=== PATIENT | female | born 1955 | race Caucasian/White ===

== ENCOUNTER 2025-01-31 16:32 | Emergency (ER) | payer OTHER, SELFPAY ==
--- OUTSIDE RECORDS SUMMARY | 2020-12-27 05:01 | XMS_ITS | Continuity of Care Document ---
Author Organization [facility] Address [address] [address] [place] [address] Care Team Providers Care Infectious Disease Physician Name Role Phone [employer], [place] Unavailable Unav ailable Procedures Procedure Date Ugi Endo; W/bx 1/mx Ugi En Colore Advance Directives Directive Yes / No Effective Date File Name No Information Encounters Encounter Description Practice Location Reason(s) For Visit Diagnoses Date Provider Providers Copied on Encounter [facility], [address] [address], [place], [place], [id number], [place] [facility] No Information [facility]. [address] [address], [place], [place], [id number], . tel:[phone] Family History Family Member Type Diagnosis Age At Onset No Information Payers Payer name Insurance type Covered green party ID Authoriza tion(s) [employer] Gold Choice 16 [id number] Social History Type Description Quantity Date Captured Comments Sex Female Smoking Status No Information Chief Complaint And Reason For Visit No Information Reason For Referral Reason For Referral No Information History Of Present Illness Encounter Date Complaint History Of Prese nt Illness No Information Functional Status Date Functional Assessmen t No Information Instructions Date Instruction Additional Infor mation No Information Assessments Type Assessment Date No Information Patient Care Teams Name Effective Dates (start - stop) Status Members No Information
--- OUTSIDE RECORDS SUMMARY | 2025-01-06 09:00 | XMS_ITS | Continuity of Care Document ---
Author Organization [facility] Address [address] [address] [place] [address] Phone Care Team Providers Care Technology Education Instructor Name Role Phone Scott Brito DO Unavailable Unavailable Allergies, Adverse Reactions, Alerts Substance Reaction Status Criticality No Known Allergies Active No Inform ation WARNIN allergy(ies) could not be collected because the type is not supported. Please contact the source practice for further details. Medications Medication Instructions Dosage Effective Dates (start - stop) Status Comments sertraline 25 mg tablet take 1 tablet by oral route every day 25 MG - Active tramadol 50 mg tablet take 1 tablet by o ral route every 6 hours as needed 50 MG - Active Ambien 5 mg tablet take 1 tablet by ORA L route every day as needed at bedtime 5 MG - Active venlafaxine ER 150 mg tablet,extended release 24 hr take 1 tablet by oral route 2 times every day in the morning at the same time each day with food 150 MG - Active gabapentin 300 mg capsule take 1 Capsule by ORAL route 3 times every day 300 MG - Active Abilify 2 mg tablet take 1 tablet by ora l route every day 2 MG - Active Lipitor 40 mg tablet take 1 tablet by or al route every day 40 MG - Active Zanaflex 4 mg capsule take 1 capsule by oral route every 6 - 8 hours as needed not to exceed 3 doses in 24 hours 4 MG - Active omeprazole 40 mg capsule,delayed release take 1 by Oral route every day 1 - Active fluconazole 100 mg tablet take 2 tablets by oral route on day 1, then 1 tablet po every day - Active omeprazole 40 mg Cap, Delayed Release One tab po bid - Active Procedures Procedure Date Ugi Endo; W/bx 1/mx Level Iv-surg Path Gross/micro 25 cancelled appt cancelled appt Ugi Endo; W/insrt Guide Wire Ugi Endo; W/bx 1/mx Level Iv-surg Path Gross/micro 23 Ugi Endo; W/insrt Guide Wire Ugi Endo; W/bx 1/mx Colorectal Ca Scrn Not Hi Risk 21 Level Iv-surg Path Gross/micro 21 Ugi Endo; W/dilat Outlet-any M 17 cancelled appt Ugi Endo; W/dilat Outlet-any M 13 Ugi Endo; W/dilat Outlet-any M 12 Colonoscopy Flex; W/remov Les- 11 Ugi Endo; W/dilat Outlet-any M 11 Level Iv-surg Path Gross/micro 11 Ugi Endo; W/dilat Outlet-any M 11 Ugi Endo; W/dilat Outlet-any M 10 Ugi Endo; W/dilat Outlet-any M 10 Ugi Endo; W/dilat Outlet-any M 10 Ugi Endo; W/dilat Outlet-any M 10 Ugi Endo; W/balloon Dilat Esop 10 Ugi Endo; W/dilat Outlet-any M 10 Ugi Endo; W/dilat Outlet-any M 10 Ugi Endo; Dx W/wo Collec Specm 10 Advance Directives Directive Yes / No Effective Date File Name No Information Encounters Encounter Description Practice Location Reason(s) For Visit Diagnoses Date Provider Providers Copied on Encounter [facility], [address] [address], [place], [id number], [place] tel:[phone] [facility] Bariatric surgery statusDysphas iaNausea and vomiting, unspecified vomiting typeDisease of stomach and duodenum, unspecifiedNa usea with vomiting, unspecified 5 Alisha Vera. [address] [facility], [address], [id number], [place]. tel:[phone] Referring Provider: Referral Self, USE FOR SELF REFERRALS. [facility], [address] [address], [place], [id number], [place] tel:[phone] [facility] No Information 5 Lamont Tapia. [address], [id number], [place]. tel:[phone] Referring Provider: Jan Angeles MD, [address] [place], [address]. tel:[phone] [facility], [address] [address], [place], [id number], [place] tel:[phone] [facility] No Information 5 Sage Colon. [address] [facility], [address], [id number], [place]. tel:[phone] Referring Provider: Referral Self, USE FOR SELF REFERRALS. [facility], [address] [address], [place], [id number], [place] tel:[phone] [facility] History of Larry-en-Y gastric bypassBariatr ic surgery statusHistory of Larry-en-Y gastric bypassDysphas iaOther dysphagiaBari atric surgery status 3 Flor Gar. [address] [facility], [facility] [address], [place], [id number], [place]. tel:[phone] Love Rdz MD. tel:[phone] erring Provider: Jan Angeles MD, [address], [place], [address]. tel:[phone] [facility], [address] [address], [place], [place], [id number], [place] tel:[phone] [facility] No Information 3 Oscar Ruiz. [address] [facility], [address], [place], [address], [place]. tel:[phone] [facility], [address] [address], [place], [place], [id number], [place] tel:[phone] [facility] GI Symptoms or Concerns (chief complaint) Esophageal strictureDysp hagia, unspecified typeHistory of Larry-en-Y gastric bypassIron deficiency anemia, unspecified iron deficiency anemia typeDiverticu losis of colon without diverticuliti sGrade I hemorrhoidsLi mihai of colonColon cancer screeningMoni lial esophagitisEn counter for screening for malignant neoplasm of colonBariatri c surgery statusEsophag eal obstruction 1 No Information Love Rdz MD. tel:[phone] erring Provider: Jan Angeles MD, [address], [place], [address]. tel:[phone] [facility], [address] [address], [place], [address], [place] tel:[phone] [facility] No Information 1 Hira Bustos. [address] [facility], [address], [place], [place], [id number], [place]. tel:[phone] [facility], [address] [address], [place], [address], [place] tel:[phone] [facility] H/O bariatric surgeryGastro jejunal anastomotic strictureAdul t hypertrophic pyloric stenosisBaria tric surgery statusOth postprocedura l complications and disorders of dgstv sys Jun-1 7 Roldan Bill. [address] [facility], [address], [place], [place], [address], [place]. tel:[phone] Referring Provider: Referral Self, USE FOR SELF REFERRALS. [facility], [address] [address], [place], [id number], [place] tel:[phone] [facility] No Information 7 No Information Referring Provider: Referral Self, USE FOR SELF REFERRALS. [facility], [address] [address], [place], [id number], [place] tel:[phone] [facility] Nausea with vomiting, unspecified 7 No Information [facility], [address] [address], [place], [id number], [place] tel:[phone] [facility] Esoph Stricture/delma atzki RingEsop Ulcer W/o BleedPost-op Aftercare NecEsoph Stricture/delma atzki RingBariatric Surgery StatusGastric /antral Ulcer Unspec 3 No Information [facility], [address] [address], [place], [id number], [place] tel:[phone] [facility] No Information 3 No Information [facility], [address] [address], [place], [id number], [place] tel:[phone] [facility] Gastric Outlet Obstuc/pylori c StenoPost-op Aftercare NecGastric Outlet Obstuc/pylori c StenoBariatri c Surgery Status 2 No Information Referring Provider: Referral Self, USE FOR SELF REFERRALS. [facility], [address] [address], [place], [id number], [place] tel:[phone] [facility] Gastric Outlet Obstuc/pylori c StenoPost-op Aftercare NecPolyp-inte s/rect/stom-u nc BehColon Cancer ScreeningBeni gn Neoplasm ColonColon Cancer ScreeningBari atric Surgery StatusGastric Outlet Obstuc/pylori c StenoBenign Neoplasm Colon 1 No Information [facility], [address] [address], [place], [id number], [place] tel:[phone] [facility] Peptic Ulcer W/o Obstruction 1 No Information [facility], [address] [address], [place], [id number], [place] tel:[phone] [facility] Gastric Outlet Obstuc/pylori c StenoPost-op Aftercare NecPeptic Ulcer W/o ObstructionGa stric Outlet Obstuc/pylori c StenoBariatri c Surgery StatusPeptic Ulcer W/o Obstruction 1 No Information [facility], [address] [address], [place], [id number], [place] tel:[phone] [facility] Esoph Stricture/delma atzki RingGastric Outlet Obstuc/pylori c StenoPost-op Aftercare NecGastric Outlet Obstuc/pylori c StenoBariatri c Surgery Status 0 No Information [facility], [address] [address], [place], [id number], [place] tel:[phone] [facility] Gastric Outlet Obstuc/pylori c StenoPost-op Aftercare NecGastric Outlet Obstuc/pylori c StenoBariatri c Surgery Status 0 No Information [facility], [address] [address], [place], [id number], [place] tel:[phone] [facility] Post-op Aftercare NecGastric Outlet Obstuc/pylori c StenoGastric Outlet Obstuc/pylori c StenoBariatri c Surgery Status 0 No Information [facility], [address] [address], [place], [id number], [place] tel:[phone] [facility] Gastric Outlet Obstuc/pylori c StenoGastric/ antral Ulcer UnspecPost-op Aftercare NecGastric Outlet Obstuc/pylori c StenoBariatri c Surgery StatusGastric /antral Ulcer Unspec 0 No Information [facility], [address] [address], [place], [id number], [place] tel:[phone] [facility] Post-op Aftercare NecGastric Outlet Obstuc/pylori c StenoBariatri c Surgery Status 4-201 0 Shahbaz Ferrera. [address] [facility], [address], [place], [place], [address], [place]. [phone] [facility], [address] [address], [place], [id number], [place] tel:[phone] [facility] Post-op Aftercare NecGastric/an tral Ulcer UnspecGastric Outlet Obstuc/pylori c StenoGastric/ antral Ulcer UnspecBariatr ic Surgery StatusGastric Outlet Obstuc/pylori c Steno Jun- 7-201 0 No Information [facility], [address] [address], [place], [id number], [place] tel:[phone] [facility] Esop Ulcer W/o BleedGastric Outlet Obstuc/pylori c StenoPost-op Aftercare NecEsop Ulcer W/o BleedBariatri c Surgery StatusGastric Outlet Obstuc/pylori c Steno 5-201 0 No Information [facility], [address] [address], [place], [id number], [place] tel:[phone] [facility] Gastric Ulcer W/obstruc UnspecifiedBa riatric Surgery Status 0-201 0 No Information Family History Family Member Type Diagnosis Age At Onset Brother Problem (finding) Thyroid disorder Father Problem (finding) prostate cancer Father Problem (finding) Colon polyps Immunizations Vaccine Date Status Comments Pneumococcal conjugate vacci ne 20-valent (PCV20), polysaccharide ISE303 conjugate, adjuvant, preservative free administered Note: [facility] bi-direct ional interface ; Source: Other Registry tetanus toxoid, reduced diphtheria toxoid, and acellular pertussis vaccine, adsorbed administered Note: [facility] b i-directional interface ; Source: Other Registry SARS-COV-2 (COVID-19) vaccin e, mRNA, spike protein, LNP, preservative free, 30 mcg/0.3mL dose administered Note: [facility] bi-direct ional interface ; Source: Other Registry SARS-COV-2 (COVID-19) vaccin e, mRNA, spike protein, LNP, preservative free, 30 mcg/0.3mL dose administered Note: [facility] bi-direct ional interface ; Source: Other Registry Prevnar 13 administered Note: [facility] bi-d irectional interface ; Source: Other Registry tetanus and diphtheria toxoi ds, adsorbed, preservative free, for adult use (2 Lf of tetanus toxoid and 2 Lf of diphtheria toxoid) administered Note: [facility]II C bi- directional interface ; Source: Other Registry Payers Payer name Insurance type Covered green party ID Authoriza tion(s) [employer] Gold Choice 16 [id number] Social History Type Description Quantity Date Captured Comments Alcohol Use Details Unknown Caffeine Use Details Unknown Tobacco Use Status No Information Smoking Status Current some day smoker 025 Sex Female Vital Signs Date / Time: Height Weight BMI Pulse Rate Blood Pressure Temperature Respiratory Rate Body Surface Area Head Circumference Head Circ. Percentile Wt./Kvng. Percentile BMI percentile Pulse Ox Inhaled Ox 2:18 PM 64.00 in 78.460 kg (173.00 lbs) 29.7 0 kg/m eter (2) 70 /min 137/76 mm[Hg] 0.00 F 20 /min 96 % 0.00 in 0.000 kg (0.00 lbs) 29.7 0 kg/m eter (2) 71 /min 126/61 mm[Hg] 0.00 F 16 /min 95 % 0.00 in 0.000 kg (0.00 lbs) 29.7 0 kg/m eter (2) 63 /min 133/60 mm[Hg] 0.00 F 18 /min 96 % Chief Complaint And Reason For Visit No Information Reason For Referral Reason For Referral No Information Plan Of Treatment Date Type Action Status Referral Ordered: Esophageal Motility Study Appointment date/timeframe: 12/23/2022 ordered Referral Ordered: EGD With Dilation Appointment date/timeframe: 03/28/2021 ordered Referral Ordered: EGD Appointment date/timeframe: 07/04/2016 ordered History Of Present Illness Encounter Date Complaint History Of Prese nt Illness GI Symptoms or Concerns Functional Status Date Functional Assessmen t No Information Instructions Date Instruction Additional Infor mation Dysphagia Related to Dysph nicki Dysphagia Related to Dysph nicki Hiatal Hernia Related to Dysph nicki Gastritis Related to Dysph nicki NSAIDS List Related to Dysph nicki Diverticulosis/Diverticulitis Re lated to Grade I hemorrhoids Colon Cancer Prevention Related to Grade I hemorrhoids Hemorrhoids Related to Grade I hemorrhoids Assessments Type Assessment Date assessment Bariatric surgery status 2024 assessment Dysphasia assessment Nausea and vomiting, unspecified vomiting type Patient Care Teams Name Effective Dates (start - stop) Status Members No Information
[2025-01-31 16:45] VITALS: BP 136/79; PULSE 96; RESP 20; TEMP 37; O2SAT 95; BMI 30.2
--- NOTE | 2025-01-31 17:04 | ED.FALL ---
HPI - Fall General Time Seen by Provider: 17:10 Date Seen: 01/31/25 Chief Complaint: Fall/Minor Trauma Stated Complaint: fall/hit head Time Seen by Provider: 01/31/25 16:59 Source: patient and family Mode of arrival: ambulatory Limitations: no limitations History of Present Illness HPI Narrative: 69-year-old female who comes in today with head pain and back pain after a fall. Patient was in her stair lift chair, thought she was at the bottom of the stairs because it stopped but she has a couple steps up, fell hitting the back of her head. Also complained of some pain in the right side of the back and right flank. This occurred a couple days ago, she called the clinic today for an appointment due to ongoing pain and was told coming emergency department. Patient had no loss of consciousness, no nausea vomiting, no neurologic deficits and no severe pain. She has no neck pain. She does not have any shortness of breath or pain with breathing. No blood in the urine. No numbness or tingling of the arms and legs. She did hit her right knee but has been ambulating without difficulty. Related Data Allergies Allergy/AdvReac Type Severity Reaction Status Date / Time No Known Drug Allergies Allergy Verified 01/31/25 16:49 Exam Narrative: Exam Narrative: General: Well-developed and well-nourished, no acute distress Head: boggy swelling of the right occipital parietal area Eyes: Pupils are equal reactive, extraocular motions intact, conjunctiva clear ENT: External nose and ears are normal, posterior pharynx without erythema or exudate Neck: No midline cervical tenderness, full spontaneous range of motion the neck, trachea midline, no adenopathy Heart: Regular rate and rhythm no murmurs or thrills Lungs: Clear to auscultation bilaterally without wheezes or crackles. Right posterior chest wall tenderness. Abdomen: Soft, nontender, nondistended with active bowel sounds Musculoskeletal: Midline thoracic tenderness Neurologic: Awake, alert, and oriented x3, no gross focal neurologic deficits, cranial nerves intact as tested Psych: Mood and affect are appropriate Skin: No rashes Const: Vital Signs, click to edit/add: Vital Signs - 24 hr 01/31/25 16:45 Temperature 98.6 F Pulse Rate [Pulse Oximeter] 96 Respiratory Rate 20 Blood Pressure [Ri ght Upper Arm] 136/79 Pulse Oximetry 95 Oxygen Delivery Me thod Room Air Course Course ED Course: Additional records reviewed: Reviewed prior primary care visit from September 2024 which was a phone visit, labs were ordered to follow-up for anemia, hyperlipidemia. Additional history from: none Care impacted by: chronic pain, anemia Testing considered but not performed: See ED course Patient seen in lobby due to critical capacity in the department. Patient presents today after a fall 2 days ago. She fell down some stairs, hit her head but no loss of consciousness, has some boggy swelling of the right occipital area, CT scan of the head is ordered although suspect soft tissue injury without severe intracranial injury. Also right posterior rib tenderness and midline thoracic tenderness, no neurologic deficits. CT scan of the thoracic spine and chest ordered. No midline cervical tenderness or pain with neck movement, full range of motion the neck, no indication for CT scan of the cervical spine, chronic low back pain which is unchanged from usual with no midline tenderness. She does complain of hitting the right side of the knee, however ambulating without difficulty and bony abnormality is clinically unlikely. Reevaluation(s) Time of Reevaluation #1: 17:48 Reevaluation #1: CT head independently interpreted by me negative for acute intracranial findings. CT of the chest independently interpreted by me negative for hemothorax, pneumothorax question right anterior rib fracture. CT of the thoracic spine independently interpreted by me negative for acute findings. Time of Reevaluation #2: 18:17 Reevaluation #2: IMPRESSIONS: 1. Nondisplaced fractures of the right anterior 5th and 6th ribs are noted. 2. Mild cortical angulation seen in the anterior 3rd-5th ribs are present which may be due to remote injuries. Correlation with physical examination for focal tenderness is recommended. 3. A 3 mm nodule is noted in the left anterior apex. In accordance with the 2017 Revised Fleischner Society Recommendations, optional follow-up CT in 12 months is advised if the patient has a high risk stratification. Time of Reevaluation #3: 18:26 Reevaluation #3: Patient updated with findings and plan, stable for discharge. I was not able to find her son in lobby and he was not in the room. Vital Signs Vital signs: Initial Vital Signs Temperature 98.6 F 01/31/25 16:45 Temperature Source Temporal Artery Scan 01/31/25 16:45 Pulse Rate 96 01/31/25 16:45 Respiratory Rate 20 11/10/25 16:45 Blood Pressure 136/79 01/31/25 16:45 Blood Pressure Mean 98 01/31/25 16:45 Pulse Oximetry 95 01/31/25 16:45 Oxygen Delivery Method Room Air 01/31/25 16:45 Vital Signs Temperature 98.6 F 01/31/25 16:45 Pulse Rate 96 01/31/25 16:45 Respiratory Rate 20 01/31/25 16:45 Blood Pressure 136/79 01/31/25 16:45 Pulse Oximetry 95 01/31/25 16:45 Oxygen Delivery Method Room Air 01/31/25 16:45 Temperature 98.6 F 01/31/25 16:45 Pulse Rate 96 01/31/25 16:45 Respiratory Rate 20 01/31/25 16:45 Blood Pressure 136/79 01/31/25 16:45 Pulse Oximetry 95 01/31/25 16:45 Oxygen Delivery Method Room Air 01/31/25 16:45 Discharge Plan Discharge Clinical Impression: Contusion of scalp, Traumatic injury of posterior chest wall, Contusion of right knee, Closed rib fracture Patient Disposition: Home, Self-Care Condition: Stable Instructions: Rib Fracture (ED), Contusion in Adults (ED), Scalp Contusion in Adults (ED) Additional Instructions: Tylenol and ibuprofen as needed for pain Activity Level: Activity as Tolerated Discharge Diet: Regular Follow Up/Referrals: Provider,Not a Local [Primary Care Provider, Family Practice] Stand Alone Forms: MyHealth Info Instructions
--- NOTE | 2025-01-31 17:14 | CRLHL7_ITS ---
For Patients: As a result of the Century Cures Act, medical imaging exams and procedure reports are released immediately into your electronic medical record. You may view this report before your referring provider. If you have questions, please contact your health care provider. INDICATION: Head injury, fall down stairs TECHNIQUE: CT Head without i.v. contrast. Coronal and sagittal reformats were obtained. COMPARISON: None FINDINGS: CSF space: Unremarkable for age. Brain: No evidence of mass, acute infarction or hemorrhage is seen. No mass-effect or midline shift is seen. Mild diffuse cortical atrophy is noted. The brain parenchyma is otherwise normal in appearance with preservation of the donis-white matter junction. Calvarium: The visualized paranasal sinuses are well aerated. The mastoid air cells are clear. The visualized orbits are grossly unremarkable. The calvarium is unremarkable in appearance with no fractures identified. A small scalp hematoma is present over the right parietal region. IMPRESSION: 1. No evidence of acute infarction, intracranial hemorrhage, or mass-effect seen. Dictated by Charly Echavarria MD @ 01/31/2025 6:01:56 PM Please note that all CT scans at this facility use dose modulation, iterative reconstruction, and/or weight-based dosing when appropriate to reduce radiation dose to as low as reasonably achievable. Dictated by: Charly Echavarria MD @ 01/31/2025 18:02:00 (Electronically Signed)
--- NOTE | 2025-01-31 17:14 | CRLHL7_ITS ---
For Patients: As a result of the Century Cures Act, medical imaging exams and procedure reports are released immediately into your electronic medical record. You may view this report before your referring provider. If you have questions, please contact your health care provider. INDICATION: Fall, post right chest pain, fall down stairs TECHNIQUE: CT chest without i.v. contrast. Coronal and sagittal reformats were obtained. COMPARISON: None FINDINGS: Cardiovascular: The heart has an unremarkable appearance and size. The pulmonary arteries are unremarkable in appearance. No sign of aneurysm seen in the thoracic aorta. The presence of aortic dissection cannot be evaluated without the use of intravenous contrast. Mild atherosclerotic calcifications are noted in the coronary arteries. Mediastinum: No mass or adenopathy seen. Lung: No pulmonary contusion, laceration or pneumothorax is seen. A 3 mm nodule is noted in the left anterior apex. High-risk patients can include those of older age, history of heavy smoking, and upper lobe nodules or nodules with irregular or spiculated margins. Fleischner Society Recommendations are not applicable in patients younger than 35, patients with known cancer or immunocompromised states. Pleura and pericardium: No sign of pleural effusion seen. No significant pericardial effusion is present. Chest wall and axilla: No mass or adenopathy seen. Bone: Thoracic spine findings are described in separate report. Nondisplaced fractures of the right anterior 5th and 6th ribs are noted. Mild cortical angulation seen in the anterior 3rd-5th ribs are present which may be due to remote injuries. Upper abdomen: Prior gastric bypass surgery is partially visualized. Several calcified gallstones are noted near the gallbladder neck. IMPRESSIONS: 1. Nondisplaced fractures of the right anterior 5th and 6th ribs are noted. 2. Mild cortical angulation seen in the anterior 3rd-5th ribs are present which may be due to remote injuries. Correlation with physical examination for focal tenderness is recommended. 3. A 3 mm nodule is noted in the left anterior apex. In accordance with the 2017 Revised Fleischner Society Recommendations, optional follow-up CT in 12 months is advised if the patient has a high risk stratification. REFERENCE: 1. Nury Colon et al. Guidelines for Management of Incidental Pulmonary Nodules Detected on CT Images: From the Fleischner Society 2017. Radiology. 2017;284(1):228-43. DOI:10.1148/radiol.[id number] - Pubmed. Dictated by Charly Echavarria MD @ 01/31/2025 6:05:32 PM Please note that all CT scans at this facility use dose modulation, iterative reconstruction, and/or weight-based dosing when appropriate to reduce radiation dose to as low as reasonably achievable. Dictated by: Charly Echavarria MD @ 01/31/2025 18:05:36 (Electronically Signed)
--- NOTE | 2025-01-31 17:14 | CRLHL7_ITS ---
For Patients: As a result of the Century Cures Act, medical imaging exams and procedure reports are released immediately into your electronic medical record. You may view this report before your referring provider. If you have questions, please contact your health care provider. Indication: Fall. Technique: Noncontrast CT images of the thoracic spine. Comparison: None. Findings: Mild to moderately exaggerated thoracic kyphosis. Mild chronic anterior wedging of the T7 vertebral body. No acute fracture or spondylolisthesis. Advanced multilevel disc height loss and small Schmorl`s nodes in the mid thoracic spine. Moderate multilevel facet arthropathy. No high-grade spinal canal or neural foraminal stenosis. No concerning opacities in the visualized lungs. Impression: 1. No acute fracture. 2. Multilevel thoracic spondylosis. Please note that all CT scans at this facility use dose modulation, iterative reconstruction, and/or weight-based dosing when appropriate to reduce radiation dose to as low as reasonably achievable. Dictated by Matthew Orona MD @ 01/31/2025 6:07:10 PM (Electronically Signed)
--- OUTSIDE RECORDS SUMMARY | 2025-01-31 17:44 | XMS_ITS | Clinical Summary ---
Author Organization [facility] Address [address] [place] [id number] Care Team Providers Care Site Supervising Technical Operator Name Role Phone Jan Angeles DO Primary Care Provider [phone] Allergies Active Allergy Reactions Criticality Noted Date Comments Diphenhydramine 03/12/2017 Medications Venlafaxine HCl (EFFEXOR PO) Take by mouth 3 times daily Active Acetaminophen (TYLENOL PO) Active OMEPRAZOLE PO Active cyclobenzaprine (FLEXERIL) 5 MG tabletIndication s:Acute bilateral low back pain with right-sided sciatica,Spasm of back muscles Take 1 tablet (5 mg) by mouth 3 times daily as needed for muscle spasms 30 tablet 7 Active HYDROcodone-acet aminophen (NORCO) 5-325 MG per tabletIndication s:Acute bilateral low back pain with right-sided sciatica Take 1-2 tablets by mouth every 6 hours as needed for moderate to severe pain 6 tablet 7 Active vitamin D2 (ERGOCALCIFEROL) 25538 units (1250 mcg) capsuleIndicatio ns:Bariatric surgery status TAKE 1 CAPSULE BY MOUTH ONCE WEEKLY FOR 12 DOSES 12 capsule 1 2 Active venlafaxine (EFFEXOR XR) 75 MG 24 hr capsuleIndicatio ns:Recurrent major depressive disorder, remission status unspecified TAKE 1 CAPSULE BY MOUTH EVERY DAY 90 capsule 2 Active gabapentin (NEURONTIN) 100 MG capsuleIndicatio ns:Lumbar pain TAKE 1 CAPSULE BY MOUTH TWICE DURING THE DAY AND USE 2-3 CAPSULES AT BEDTIME 180 capsule 3 2 Active Active Problems Problem Noted Date Diagnosed Date Depression 03/16/2017 Hx of gastric ulcer 03/16/2017 Immunizations Immunization Administration Dates Next Due Pneumo Conj 13-V (2010&after) 04/30/2019 Td (Adult), Adsorbed 06/15/2004 Td,adult,historic,unspecified 06/15/2004 Family History Medical History Relation Comments Rheumatoid Arthritis Daughter Chronic Obstructive Pulmonary Disease Father Diabetes Mother Hyperlipidemia Mother Osteoarthritis Mother Osteoarthritis Sister Asthma Son Relation Status Comments Daughter Father Mother Sister Son Social History Tobacco Use Types Packs/Day Years Used Date Smoking Tobacco: Every Day Smokeless Tobacco: Never Alcohol Use Standard Drinks/Week Comments Not Asked 0 (1 standard drink = 0.6 oz pur e alcohol) PHQ-2 Answer Date Recorded PHQ-2 Score 4 05/30/2020 Adolescent Education Answer Date Record ed Getting School Help Needed Not on file 01/05 Comments Unknown Sex and Gender Information Value Date Recorded Sex Assigned at Not on file Legal Sex Female 3:15 AM CLIENT DELIVERY SPECIALIST Gender Identity Not on file Sexual Orientation Not on file Last Filed Vital Signs Vital Sign Reading Time Taken Comments Blood Pressure 138/62 04/30/2019 11:46 AM CLIENT DELIVERY SPECIALIST Pulse 102 04/30/2019 11:46 AM CLIENT DELIVERY SPECIALIST Temperature 36.4 C (97.6 F) 03/12/2017 1:55 PM CLIENT DELIVERY SPECIALIST Respiratory Rate - - Oxygen Saturation 98% 04/30/2019 11: 46 AM CLIENT DELIVERY SPECIALIST Inhaled Oxygen Concentration - - Weight 71.2 kg (156 lb 14.4 oz) 020 11:46 AM CLIENT DELIVERY SPECIALIST Height 161.3 cm (5' 3.5) 04/30/2019 11 :46 AM CLIENT DELIVERY SPECIALIST Body Mass Index 27.36 04/30/2019 11:46 AM CLIENT DELIVERY SPECIALIST Plan of Treatment Not on file Insurance [facility] [employer] Care Teams Site Supervising Technical Operator Relationship Specialty Start Date End Date Jan Angeles DO [address] [place] [address] PCP - General Family Medicine 07/08/22
--- OUTSIDE RECORDS SUMMARY | 2025-01-31 17:44 | XMS_ITS | Encounter Summary ---
Author Organization [facility] Address [address] [place] [address] Care Team Providers Care Med Admin Name Role Phone Love Rdz MD Primary Care Provider [phone] Love Rdz MD Unavailable [phone] Love Rdz MD Unavailable [phone] Jan Angeles DO Primary Care Provider [phone] [facility] Unavailable Encounter Details Date Type Department Care Team (Latest Contact Info) Description 05/30/2020 Historic Results Social History Tobacco Use Types Packs/Day Years Used Date Smoking Tobacco: Every Day Smokeless Tobacco: Current PHQ-2 Answer Date Recorded PHQ-2 Score 4 05/30/2020 Comments Unknown Sex and Gender Information Value Date Recorded Sex Assigned at Not on file Legal Sex Female 3:15 AM CHEMICAL PLANT TECHNICAL DIRECTOR Gender Identity Not on file Sexual Orientation Not on file documented as of this encounter Plan of Treatment Not on file documented as of this encounter Visit Diagnoses Not on filedocumented in this encounter Additional Health Concerns Assessment Noted Time PHQ-9 Depression Total Score: 10 08/17/ 021 4:11 PM CDT documented as of this encounter Care Teams Med Admin Relationship Specialty Start Date End Date Love Rdz MD PCP - General Internal Medicine 03/12/17 06/21/22 Jan Angeles DO [address] [place] [address] PCP - General Family Medicine 07/08/22 Love Rdz MD [facility] [address] [place] [address] Assigned PCP 09/06/20 11/18/20 Love Rdz MD [facility] [address] [place] [address] Assigned PCP 12/17/20 04/16/23 [facility] - [address] [address] Assigned PCP 04/17/23 07/14/23 documented as of this encounter
--- OUTSIDE RECORDS SUMMARY | 2025-01-31 17:44 | XMS_ITS | Encounter Summary ---
Author Organization [place] Address [facility] [place] [address] Care Team Providers Care Bus Driver Supervisor Name Role Phone Love Rdz MD Primary Care Provider [phone] Love Rdz MD Unavailable [phone] Jan Angeles DO Primary Care Provider [phone] [facility] Unavailable Reason for Visit * Reason Comments Medication Refill Encounter Details Date Type Department Care Team (Late st Contact Info) Description 08/01/2021 [facility] [address] [place] [address] Love Rdz MD [facility] [address] [place], [place] [id number] Medication Refill Social History Tobacco Use Types Packs/Day Years Used Date Smoking Tobacco: Every Day Smokeless Tobacco: Never Alcohol Use Standard Drinks/Week Comments Not Asked 0 (1 standard drink = 0.6 oz pur e alcohol) PHQ-2 Answer Date Recorded PHQ-2 Score 4 05/30/2020 Comments Unknown Sex and Gender Information Value Date Recorded Sex Assigned at Not on file Legal Sex Female 3:15 AM AUTOMATION CONTROL INTEGRATOR Gender Identity Not on file Sexual Orientation Not on file documented as of this encounter Miscellaneous Notes * Telephone Encounter - Mika Alexis RN - 08/03/2021 9:18 AM CDT Routing refill request to provider for review/approval because: Drug not on the [facility] refill protocol Patient needs to be seen because it has been more than 1 year since last office visit. Last Written Prescription Date: 11/10/20 Last Fill Quantity: 450, # refills: 0 Last office visit provider: 05/30/20 Requested Prescriptions Pending Prescriptions Disp Refills ??? gabapentin (NEURONTIN) 100 MG capsule [Pharmacy Med Name: GABAPENTIN 100MG CAPSULES] 450 capsule 0 Sig: TAKE 1 CAPSULE BY MOUTH TWICE DAILY DURING THE DAY AND 2-3 CAPSULES AT BEDTIME. TOTAL OF 5 CAPSULES DAILY There is no refill protocol information for this order Mika Alexis RN 08/03/21 9:18 AM documented in this encounter Plan of Treatment Not on file documented as of this encounter Visit Diagnoses Diagnosis Lumbar pain Lumbago documented in this encounter Additional Health Concerns Assessment Noted Time PHQ-9 Depression Total Score: 10 021 4:11 PM CDT documented as of this encounter Care Teams Bus Driver Supervisor Relationship Specialty Start Date End Date Love Rdz MD PCP - General Internal Medicine 03/12/17 06/21/22 Jan Angeles DO [address] [place] [address] PCP - General Family Medicine 07/08/22 Love Rdz MD [facility] [address] [place] [address] Assigned PCP 12/17/20 04/16/23 [facility] [address] [place] [address] Assigned PCP 04/17/23 07/14/23 documented as of this encounter
--- OUTSIDE RECORDS SUMMARY | 2025-01-31 17:44 | XMS_ITS | Clinical Summary ---
Author Organization [facility] Address [address] , [address] [place] [address] Phone Care Team Providers Care Digital Asset Manager Name Role Phone [facility] Unavailable Unava ilable Conditions or Problems Problem Name Problem Code Onset Date Status Entry Date Provider Comment Standard Description Annotate Neuropathy 663640831 (SNOMED CT) 07/08 Active 07/08 Herbert Flores MD Neuropathy B12 deficiency 247118540 (SNOMED CT) 07/08 Active 07/08 Herbert Flores MD Cobalamin deficiency Tremor 93273864 (SNOMED CT) 07/08 Active 07/08 Herbert Flores MD Tremor Visual hallucinations 72131822 (SNOMED CT) 07/08 Active 07/08 Herbert Flores MD Visual hallucinations Medications Medication Instructions Start Date Stop Date Generic Name ND Provider INDERAL LA 60 MG [id number] 1 capsule by mouth once a day 2 propranolol 83964611208 Herbert Flores MD PROPRANOLOL HCL ER 60 MG [id number] TAKE 1 CAPSULE BY MOUTH EVERY DAY 2 propranolol 01627463114 Herbert Flores MD PROPRANOLOL HCL 20 MG TABS TAKE 1 TABLET BY MOUTH TWICE DAILY NEEDED 7 propranolol 99258623505 Herbert Flores MD ZOLPIDEM TARTRATE 5 MG TABS zolpidem 76607791616 Herbert Flores MD INDERAL LA 60 MG [id number] 1 capsule by mouth once a day 2 propranolol 90085896004 Herbert Flores MD TRAZODONE HCL 50 MG TABS 1 tablet by mouth at bedtime 2 trazodone 17265134703 Herbert Flores MD PROPRANOLOL HCL 20 MG TABS 1 tablet by mouth twice a day as needed 7 propranolol 68864516011 Herbert Flores MD PROPRANOLOL HCL 20 MG TABS TAKE 1 TABLET BY MOUTH TWICE DAILY NEEDED 7 propranolol 27167234360 Herbert Flores MD PROPRANOLOL HCL 20 MG TABS 1 tablet by mouth twice a day as needed 7 propranolol 52495236007 Herbert Flores MD ARIPIPRAZOLE 2 MG TABS aripiprazole 58362756964 Herbert Flores MD VENLAFAXINE HCL 75 MG TABS venlafaxine 74864914786 Herbert Flores MD ZOLPIDEM TARTRATE 5 MG TABS zolpidem 98690153316 Herbert Flores MD GABAPENTIN 100 MG CAPS gabapentin 51799328324 Herbert Flores MD TRAMADOL HCL 50 MG TABS tramadol 41168263645 Herbert Flores MD ATORVASTATIN CALCIUM 40 MG TABS atorvastatin 93928664660 Herbert Flores MD OMEPRAZOLE 40 MG CPDR omeprazole 67267941281 Herbert Flores MD TIZANIDINE HCL 4 MG TABS tizanidine 11589878456 Herbert Flores MD Medications Administered No information available. Allergies, Adverse Reactions, Alerts No information available. Results Date Name Value Unit Range Flag Description Office Visit: Office Visit T fall. MRI/CT-none. Pt r/s from fax MEDS REVIEW Done Documenta tion of current medications (procedure) Internal Other: Authorizatio n - OBS [email or web address] Yes Authoriza tion: Release of Information - Authorize [facility] - Payment and Healthcare Operations ROIAUTHOTHER Yes Authoriz ation: Release of Information - Authorize Others/Insurance - Payment and Healthcare Operations HIECONSENT Yes Consent To Release information to the Health Information Exchange (HIE) [email or web address] Yes Authorizat ion: Authorization for [facility] to leave messages, voicemail, send text messages, send emails AUTHRELHCARE Yes Authoriz ation: Release/Retrieval of Information to/from Healthcare Facilities, Pharmacy Benefit Payers and Providers AUTHPRIVPRAC Yes Authoriz ation: Notice of privacy practices AUTHBENEFIT Yes Authoriza tion: Assignment of Benefits and Payment Agreement Replaced Document: (P) PROTE IN, TOTAL AND PROTEIN ELECTROPHORESIS WITH IMMUNOFI ... METHYL MALON * nmol/L methylma lonic acid (MMA), serum VIT B1 PLSM * ug/L Vitamin B 1 (thiamine), plasma AMMONIA P * umol/L Ammonia [Ma ss/volume] in Plasma HGBA1C * % Hemoglobin A1c/Hemoglobin, total in Blood - % B-12 * pg/mL Cobalamin (Vi tamin B12) [Mass/volume] in Serum or Plasma TSH * u[iU]/mL Thyrotropin [Units/volume] in Serum or Plasma FOLATE * ng/mL Folate [Mass/ volume] in Serum or Plasma CERULOPLASMI * mg/dL cerulopl asmin, serum ANASCR IFA * JOANNA SCREEN , IFA ESR 9 mm/h < OR = 30 N Erythrocyte sedimentation rate by Westergren method INTRP * Interpretatio n ABNPROTBND3 * g/dL Abnormal Protein Band 3, g/dL ABNPROTBND2 * g/dL Abnormal Protein Band 2, g/dL ABNPROTBND * g/dL Abnormal P rotein Band 1, g/dL GAMMA GLOB * mg/dL Gamma glob ulin [Mass/volume] in Serum or Plasma by Electrophoresis [id number] * g/dL beta 2 g lobulin [id number] * g/dL beta 1 g lobulin ALPHA 2 GLOB * Alpha 2 globulin [Mass/volume] in Serum or Plasma by Electrophoresis ALPH-1 SR PE * g/dL alpha-1 globulin, serum, by protein electrophoresis ALBUM SER PE * g/dL albumin, serum by protein electrophoresis IFEINTERPUR * immunofix ation electrophoresis interpretation, urine PROTEIN, TOT * g/dL Protein [Mass/volume] in Serum or Plasma Plan of Care Type Date Detail Pending order Follow up with N eurologist or DIANELYS Pending order Follow up with N eurologist or DIANLEYS Pending Order exclud ed from report: Pending order Follow up after testing Pending order NA Scan Pending order MRI-Brain W/WO Pending order Hemoglobin A1C Pending order Immunofixation S christelle w/Electrophoresis Pending order Ammonia Pending order JOANNA Pending order Ceruloplasmin Pending order ESR (Sedimentati on Rate) Pending order Folate (Folic Ac id) Serum Pending order TSH Pending order Vitamin B12 Pending order Methylmalonic Ac id Serum (MMA) Pending order Vitamin B1 (Thia mine) - fasting after midnight Procedures Code Procedure Name Date Entry Date ORDERS Follow up with Neurologist or DIANELYS ORDERS Follow up after testing 2022 ORDERS NA Scan [id number] MRI-Brain W/WO [id number] MRI Brain W/WO [id number] ProHance Gadolinium- based MR Contrast - 15 ml vial ORDERS ESR (Sedimentation Rate) 05/25/16 ORDERS Folate (Folic Acid) Serum 14/07/16 ORDERS TSH ORDERS Vitamin B12 ORDERS Hemoglobin A1C ORDERS Ceruloplasmin ORDERS JOANNA ORDERS Methylmalonic Acid Serum (MMA) ORDERS Immunofixation Serum w/Electrophoresis 14/07/16 ORDERS Ammonia ORDERS Vitamin B1 (Thiamine ) - fasting after midnight [facility]-[id number] Documentation of current medicatio ns [facility]-[id number] Documentation of current medicatio ns [facility]-[id number] Documentation of current medicatio ns Vital Signs Date Name Value Unit Description Weight Measured 160 [lb_av] weight E& M Weight Measured 160 [lb_av] weight E& M BP Diastolic 80 mm[Hg] blood pressu re, diastolic BP Systolic 123 mm[Hg] blood pressur e, systolic Heart Rate 87 /min pulse rate Respiratory Rate 16 /min respirat ory rate E&M Immunizations No information available. Advance Directives No information available.
--- OUTSIDE RECORDS SUMMARY | 2025-01-31 17:44 | XMS_ITS | Encounter Summary ---
Author Organization [facility] Address [address] [place] [address] Care Team Providers Care Production Lapping Machine Operator Name Role Phone Love Rdz MD Primary Care Provider [phone] Love Rdz MD Unavailable [phone] Love Rdz MD Unavailable [phone] Jan Angeles DO Primary Care Provider [phone] [facility] Unavailable Reason for Visit * Reason Comments Medication Refill Encounter Details Date Type Department Care Team (Late st Contact Info) Description 11/07/2020 [facility] [address] [place] [phone] Love Rdz MD [facility] [address] [place], [place] [id number] Medication Refill Social History Tobacco Use Types Packs/Day Years Used Date Smoking Tobacco: Every Day Smokeless Tobacco: Never Alcohol Use Standard Drinks/Week Comments Not Asked 0 (1 standard drink = 0.6 oz pur e alcohol) PHQ-2 Answer Date Recorded PHQ-2 Score 4 05/30/2020 Comments Unknown Sex and Gender Information Value Date Recorded Sex Assigned at Not on file Legal Sex Female 3:15 AM SALES AND SERVICE ADVISOR Gender Identity Not on file Sexual Orientation Not on file documented as of this encounter Miscellaneous Notes * Telephone Encounter - Mika Alexis RN - 11/10/2020 9:06 AM CDT Disp Refills Start End ABISAI gabapentin (NEURONTIN) 100 MG capsule 450 capsule 2 05/25/2020 No Sig:??TAKE 1 CAPSULE BY MOUTH TWICE DAILY DURING THE DAY AND 2-3 CAPSULES AT BEDTIME. TOTAL OF 5 CAPSULES DAILY Sent to pharmacy as:??gabapentin 100 mg capsule (NEURONTIN) E-Prescribing Status:??Receipt confirmed by pharmacy??(05/25/2020 ??8:43 AM SALES AND SERVICE ADVISOR) gabapentin (NEURONTIN) 100 MG capsule [[id number]] 2 Status:??Active Ordering user:??Love Rdz MD 05/25/20842 Authorized by:??Love Rdz MD Frequency:?05/25/20 - Until Discontinued Released by:??Love Rdz MD 05/25/20842 Diagnoses Myalgia [M79.10] Routing refill request to provider for review/approval because: Drug not on the [facility] refill protocol Early refill request Last Written Prescription Date: 05/25/20 Last Fill Quantity: 450, # refills: 2 Last office visit provider: 05/30/20 Requested Prescriptions Pending Prescriptions Disp Refills ??? gabapentin (NEURONTIN) 100 MG capsule [Pharmacy Med Name: GABAPENTIN 100MG CAPSULES] 450 capsule Sig: TAKE 1 CAPSULE BY MOUTH TWICE DAILY DURING THE DAY AND 2-3 CAPSULES AT BEDTIME. TOTAL OF 5 CAPSULES DAILY There is no refill protocol information for this order Mika Alexis RN 11/10/20 9:06 AM documented in this encounter Plan of Treatment Not on file documented as of this encounter Visit Diagnoses Diagnosis Lumbar pain- Primary Lumbago documented in this encounter Additional Health Concerns Assessment Noted Time PHQ-9 Depression Total Score: 10 021 4:11 PM CDT documented as of this encounter Care Teams Production Lapping Machine Operator Relationship Specialty Start Date End Date Love Rdz MD PCP - General Internal Medicine 03/12/17 06/21/22 Jan Angeles DO [address] [facility] [place] [address] PCP - General Family Medicine 07/08/22 Love Rdz MD [facility] [address] [place] [address] Assigned PCP 09/06/20 11/18/20 Love Rdz MD [facility] [address] [place] [address] Assigned PCP 12/17/20 04/16/[address] [address] Assigned PCP 04/17/23 07/14/23 documented as of this encounter
--- OUTSIDE RECORDS SUMMARY | 2025-01-31 17:44 | XMS_ITS | Clinical Summary ---
Author Organization [employer] [facility] Address [address] [place] [id number] Care Team Providers Care Evidence Custodian Name Role Phone Jan [place] DO Primary Care Provide r Allergies Active Allergy Reactions Criticality Noted Date Comments Antihistamines - Alkylamine High 11/17/19 11 Influenza Virus Vaccine Whole *Unknown - Follow up needed 11/13/2007 Loratadine *Unknown 09/19/2015 Medications ARIPiprazole (ABILIFY) 2 mg tabletIndications :Depression, recurrent TAKE 1 TABLET(2 MG) BY MOUTH EVERY MORNING 90 Tablet 3 025 Active sertraline 25 mg tabletIndications :Depression, recurrent TAKE 1 TABLET(25 MG) BY MOUTH DAILY IN THE MORNING 7 Tablet 025 Active venlafaxine (EFFEXOR XR) 150 mg Extended-Release capsuleIndication s:Depression, recurrent Take 1 Capsule (150 mg) by mouth once daily with evening meal. 1 po daily along with 75 mg for a total of 225 mg per day. 90 Capsule 3 025 Active venlafaxine (EFFEXOR XR) 75 mg cp24 Extended-Release capsuleIndication s:Depression, recurrent Take 1 Capsule (75 mg) by mouth once daily with a meal. 90 Capsule 3 025 Active atorvastatin (LIPITOR) 40 mg tabletIndications :Hyperlipidemia, unspecified hyperlipidemia type Take 1 Tablet (40 mg) by mouth at bedtime. TAKE 1 TABLET(40 MG) BY MOUTH AT BEDTIME 90 Tablet 3 025 Active tiZANidine (ZANAFLEX) 4 mg tabletIndications :Back spasm Take 1 Tablet (4 mg) by mouth every 6 hours if needed for Muscle Spasm. 337 Tablet 025 Active propranolol ER (INDERAL LA) 60 mg Cs24 Sustained-Release capsuleIndication s:Tremor Take 1 Capsule (60 mg) by mouth once daily. 90 Capsule 025 Active omeprazole (PRILOSEC) 40 mg Delayed-Release capsuleIndication s:Chronic gastric ulcer, unspecified whether gastric ulcer hemorrhage or perforation present TAKE 1 CAPSULE BY MOUTH TWICE DAILY 180 Capsule 2 025 Active albuterol HFA (PRO-AIR; VENTOLIN; PROVENTIL) 90 mcg/actuation inhalerIndication s:Cough, unspecified type Inhale 1-2 Puffs by mouth every 4 hours if needed for Shortness Of Breath or Wheezing. 25.5 g 025 Active zolpidem (AMBIEN) 10 mg tabletIndications :Insomnia, idiopathic Take 1 Tablet (10 mg) by mouth at bedtime if needed for Sleep. 30 Tablet 5 025 Active HYDROcodone-aceta minophen (5-325 mg/tablet)Indicat ions:Chronic bilateral low back pain without sciatica Take 1 Tablet by mouth 3 times daily if needed for Pain. Max acetaminophen dose: 4000 mg in 24 hrs. 90 Tablet 025 Active gabapentin (NEURONTIN) 300 mg capsuleIndication s:Chronic low back pain without sciatica, unspecified back pain laterality TAKE 1 CAPSULE(300 MG) BY MOUTH THREE TIMES DAILY 270 Capsule 1 025 Active gabapentin 300 mg capsuleIndication s:Chronic low back pain without sciatica, unspecified back pain laterality Take 1 Capsule (300 mg) by mouth three times daily. 270 Capsule 1 025 2024 Discontinued Active Problems Problem Noted Date Diagnosed Date Vitamin D deficiency 10/01/2024 Arthralgia of both knees 10/01/2024 Pain of both hip joints 10/01/2024 Osteopenia 10/01/2024 Sjogren's syndrome with dental involvement 03/27 Depression, recurrent 03/27/2022 Acute gastric ulcer with obstruction 03/27/2022 Overview (03/27/2022): Created by Conversion Replacement Utility updated for latest IMO load Anemia 03/27/2022 Overview (03/27/2022): Created by Conversion Anxiety state 03/27/2022 Overview (03/27/2022): Created by Conversion Replacement Utility updated for latest IMO load Arthropathy of multiple sites 03/27/2022 Overview (03/27/2022): Created by Conversion Replacement Utility updated for latest IMO load Benign neoplasm of colon 03/27/2022 Overview (03/27/2022): Created by Conversion Bereavement, uncomplicated 03/27/2022 Overview (03/27/2022): Created by Conversion 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 03/27/2022 Overview (03/27/2022): Created by Conversion Other malaise and fatigue 03/27/2022 Overview (03/27/2022): Created by Conversion Iron deficiency anemia 05/16/2021 Asthma, unspecified asthma s everity, unspecified whether complicated, unspecified whether persistent 05/16/2021 Candidiasis of esophagus 12/27/2020 Diverticular disease of large intestine 12/28/19 21 Dysphagia 12/27/2020 Hemorrhoids 12/27/2020 Hx of gastric ulcer 03/16/2017 Adult hypertrophic pyloric stenosis 07/09/2016 Nausea and vomiting 06/21/2016 Encounters Date Type Department Care Team Description 01/31/2025 Nurse Triage [facility] [address] [place] [address] Jan [place], DO Head Injury 01/31/2025 Telephone [facility] [address] [place] [address] Jan [place], DO Questions; Fall (Fall on 01/29/25) 01/21/2025 Refill [facility] [address] [place] [address] Jan [place], DO Refill Request (Gabapentin) 01/01/2025 Telephone [facility] [address] [facility] [place] [address] Jan [place], DO Refill Request ([place] ) 12/30/2024 Refill [facility] [address] [facility] [place] [address] Jan [place], DO Refill Request (HYDROcodone-acetamino phen (5-325 mg/tablet)) 12/01/2024 Refill [facility] [address] [facility] [place] [address] Jan [place], DO Refill Request (HYDROcodone-acetamino phen (5-325 mg/tablet) ) 11/19/2024 Telephone [facility] [address] [facility] [place] [address] Jan [place], DO Appointment Request ( /TRIAGE ENCOUNTER 11/19/2024/) 11/19/2024 Nurse Triage [facility] [address] [facility] [address] Jan [place], DO Urinary Problem 11/19/2024 Telephone [facility] [address] [facility] [address] Jan [place], DO Error-please disregard 11/09/2024 Refill [facility] [address] [facility] [place] [address] Jan [place], DO Refill Request (ambien) 11/08/2024 Refill [facility] [address] [place] [address] Jan [place], DO Refill Request (Omeprazole, ALBUTEROL, ZOLPIDEM) 11/04/2024 Refill [facility] [address] [place] [address] Jan [place], DO Refill Request ([place], tizanidine, propanolol) from Last 3 Months Immunizations Immunization Administration Dates Next Due Pneumococcal Conj 20-valent (Prevnar 20) 023 Pneumococcal conj 13-Valent (Prevnar 13) 020 TD, UNSPECIFIED 06/15/2004 Td (Age >=7 Years) 06/15/2004 Tdap 05/26/2022,06/15/2004 Social History Tobacco Use Types Packs/Day Years Used Date Smoking Tobacco: Some Days Cigarettes 0.3 21.9 Started: 2003 Passive Smoke Exposure: Past Smokeless Tobacco: Never Tobacco Cessation:Ready to Q uit: Yes; Counseling Given: Not Answered Comments:06/11/23: has been 1 week without smoking. Alcohol Use Standard Drinks/Week Comments Yes 0 (1 standard drink = 0.6 oz pur e alcohol) rare PHQ-2 Answer Date Recorded PHQ-2 TOTAL SCORE 4 12/01/2023 Social Connections Answer Date Recorded Do you often feel lonely or isolated from those around you? 0 06/11/2023 Financial Resource Strain Answer Date R ecorded Difficulty of Paying Living Expenses 3 06/11/2023 Difficulty of Paying Living Expenses Not on file 06/11/2023 Food Insecurity Answer Date Recorded Do you worry your food will run out before you are able to buy more? 1 06/11/2023 Transportation Needs Answer Date Record ed Does lack of transportation keep you from medica l appointments? 1 06/11/2023 Does lack of transportation keep you from work, meetings or getting things that you need? 1 06/11/2023 Housing Stability Answer Date Recorded What is your housing situation today? 1 06/11/2023 Utilities Answer Date Recorded Do you have trouble paying f or utilities (for example, heat, electricity, water, phone)? 1 06/11/2023 Comments No Sex and Gender Information Value Date Recorded Sex Assigned at Not on file Legal Sex Female 8:08 AM [employer] Gender Identity Not on file Sexual Orientation Not on file Obstetrics History Last Filed Vital Signs Vital Sign Reading Time Taken Comments Blood Pressure 106/67 10/01/2024 8:25 AM CDT Pulse 71 10/01/2024 8:25 AM CDT Temperature 36.2 C (97.1 F) 07/01/2023 9:07 AM CDT Respiratory Rate 14 07/01/2023 9:07 AM CDT Oxygen Saturation 92% 12/01/2023 11:18 AM CDT Inhaled Oxygen Concentration - - Weight 79.8 kg (176 lb) 10/01/2024 8:25 AM CDT Height 162.6 cm (5' 4.02) 10/01/2024 8:25 AM CD T Body Mass Index 30.2 10/01/2024 8:25 AM CDT Plan of Treatment Health Maintenance Due Date Last Done Comments Zoster (shingles) series for age 50+ (1 of 2) 02/02/2004 Mammogram for age 45-75 05/24/2020 05/25/19 (Verified in Care Everywhere or Patient Record) Medicare Wellness for age 65+ 11/19/2023 11/18/2022 Influenza Vaccine (#1) 2024 Depression screening for age 12+ 11/30/2024 12/01/2023, 11/20/2022, 11/18/2022, Additional history exists BMI (ht and wt on same day) for age 18+ 10/01/2025 10/01/2024, 07/01/2023, 01/14/2023, Additional history exists Lipids for age 45-75 11/30/2028 12/01/2023, 06/11/2023, 03/27/2022, Additional history exists RSV vaccine for adults or (1 - 1-dose 75+ series) 2029 Colonoscopy through age 75 01/11/203101/11 (Completed outside of [facility]), 09/02/2018 (Completed outside of [facility]) Tetanus booster 05/26/2032 05/26/2022, 05/23, 06/15/2004, Additional history exists Hepatitis C screening for age 18-79 Completed 05/08/2022 Pneumococcal series for age 50+ Completed 11/18/2022, 04/30/2019 DEXA/DXA scan for age 65+ Completed 10/01/2024, 12/2020 Hepatitis B series for 19+ Aged Out N o longer eligible based on patient's age to complete this topic Procedures Procedure Name Priority Date/Time Associated Diagnosis Comments SCAN-OPERATIVE/PRO CEDURE REPORT 01/06/2025 3:00 PM CDT XR DXA BONE DENSITY 2 SITES AXIAL Routine 10/01/2024 9:49 AM CDT Pathological fracture with delayed healing, unspecified fracture site, unspecified pathological cause, subsequent encounter LIPID PANEL W REFLEX MEASURED LDL Routine 12/01/2023 12:03 PM CDT Hyperlipidemia, unspecified hyperlipidemia type LC HCV ANTIBODY RFX TO QUANT PCR Routine 05/08/2022 11:41 AM [employer] Need for hepatitis C screening test from Last 3 Months or Most Recently Relevant to Health Maintenance Results * SCAN-OPERATIVE/PROCEDURE REPORT (01/06/2025 3:00 PM CDT) Narrative Procedure Note Scott Brito DO - 01/06/2025 2:03 PM CDT [facility] [address], [address], [place] [id number] Patient Name: Salima Britton Gender: Female Exam Date: 01/06/2025 Visit Number: [id number] Age: 69 Years Date of : 1955 Attending MD: Scott Brito DO Medical Record#: [id number] ----- Procedure: Upper GI Endoscopy Indications: Dysphagia (liquids only) Abdominal Pain, failed to respond to treatment Nausea or Vomiting Provider: Scott Brito DO Referring MD: Referral Self Primary MD: Jan [place] MD Medications: Admitting Medication: 0.9% Normal Saline at TKO Intra Procedure Medications: Patient received monitored anesthesia care. Complications: No immediate complications Procedure: An examination of the heart and lungs was performed within acceptablelimits. . The patient was therefore deemed a reasonable candidate forsedation. The risks and benefits were explained to the patient, who appeared tounderstand. After obtaining informed consent, the scope was passed underdirect vision. Throughout the procedure the patient's blood pressure,pulse and oxygen saturations were monitored. The scope was introducedthrough the mouth and advanced to the jejunum. Findings: Esophagus: The z-line is 35 centimeters from the incisors. Top of the gastric foldsis 35 centimeters from the incisors. *Esophagus Comments: Small sliding hiatal hernia. Esophagus was otherwisenormal. There were no obvious strictures, webs or rings. Biopsies weretaken from the mid and distal esophagus Stomach: H. Pylori biopsies taken. Previous surgical procedure:Larry-en-Y The diaphragm hiatus is at 35 centimeters from the incisors. Gastritis. Location - entire stomach. Description - erythema. H.Pylori biopsies taken. Post Surgical Stomach. Previous Larry-en-Y. Finding - Normal GastricBypass Anastomosis. Endoscope was advanced through the anastomosis withoutresistance. Several intact lizbet were present Jejunum: Jejunum Comments: Normal-appearing jejunum. Biopsied. Impression: Bariatric surgery status Dysphasia Nausea and vomiting, unspecified vomiting type Impression Comments: - Small sliding hiatal hernia; no obviousstrictures, webs or rings were appreciated throughout the entire examinedesophagus. Biopsies taken to rule out EOE - Diffuse erythema seen throughout the gastric pouch - Previous surgical anastomosis appears widely patent - Normal jejunum Preliminary Plan: Recommendation Comments: - Continue omeprazole 40 mg twice daily - Follow-up in GI clinic in 2 to 4 weeks to further assess her symptoms - Would likely benefit from esophageal manometry if pathology negativegiven report of dysphagia to liquids only - Await pathology - Avoid NSAIDs including ibuprofen, Motrin, naproxen, Aleve, etc Pathology Results: A: SMALL BOWEL, JEJUNUM, BIOPSY: 1. Normal jejunal mucosa 2. Negative for celiac disease and other enteropathy B: STOMACH, BIOPSY: 1. Non-erosive reactive gastropathy (see comment) a. Sampling: Body mucosa b. Distribution: Body mucosa 2. Negative for inflammation, atrophy and Helicobacter C: ESOPHAGUS, DISTAL, BIOPSY: 1. Normal esophageal squamous mucosa 2. Gastric cardia type mucosa with no diagnostic abnormalities 3. Negative for reflux changes and eosinophilic esophagitis 4. Negative for intestinal metaplasia and dysplasia D: ESOPHAGUS, MID, BIOPSY: 1. Normal squamous mucosa 2. Negative for reflux changes and eosinophilic esophagitis 3. Negative for columnar mucosa COMMENTS B. The likely etiology is an ongoing non-inflammatory type mucosal injurydue to a chemical type of injury; this may be due to ingestion ofnon-steroidal anti-inflammatory drugs, aspirin (via prostaglandin-mediatedinjury), excess alcohol, corticosteroids, or bile/alkaline reflux, thelatter usually in the setting of a gastroenteric anastomosis. MICROSCOPIC A: Performed B: Performed C: Performed D: Performed Electronically signed by: Isac Valero MD Interpreted at [facility], [address] [place] [id number] Orders Instruction(s)/Education: Instruction/Education Timeframe Assessment Dysphagia R47.02 Dysphagia R47.02 Gastritis R47.02 Hiatal Hernia R47.02 NSAIDS List R47.02 Additional Comments: Please follow-up in clinic to further discuss your symptoms. _Electronically signed by: Scott Brito DO 01/06/2025 cc: Jan [place] MD us Scott Brito DO OTHER Final Res ult * XR DXA BONE DENSITY 2 SITES AXIAL (10/01/2024 9:49 AM CDT) Anatomical Region Laterality Modality Spine, HIPS, HIPL, HIPR Other Impressions 10/04/2024 8:57 AM CDT Osteopenia. RECOMMENDATIONS: The National Osteoporosis Foundation recommends pharmacologic treatment for patients with T-scores of -2.5 or less, patients with prior history of fragility fractures, or patients with 10-year probability of greater than 3% at hips or greater than 20% of suffering major osteoporotic fractures. Recommend continued optimization of calcium and vitamin D intake through dietary means and/or supplementation and regular exercise. Juan Pool PA-C [employer] [facility] [email or web address] Narrative 10/04/2024 8:57 AM CDT For Patients: Results are automatically released to your [employer] account once available, in compliance with federal regulations. This means that you may see your results before your provider has had a chance to review them. Please allow 2-3 business days for your provider to comment on the results. XR DXA Bone Mineral Density (BMD) EXAM LOCATION: [facility] [place] [address] PATIENT NAME: Salima Britton DATE OF : 1955 EXAM DATE: 10/01/2024 REQUESTING PROVIDER: Jan [place] DO GENDER AT : female HEIGHT: 5 feet 4 inches WEIGHT: 176 pounds MENOPAUSAL STATUS: Postmenopausal RACE/ETHNICITY: White RISK FACTORS: Bariatric Surgery, Smoking (current), and White Race CURRENT MEDICATION FOR BONE LOSS: NONE INDICATION: Screening for osteoporosis, Post-Menopause, Pathological fracture with delayed healing, unspecified fracture site, unspecified pathological cause, subsequent encounter COMPARISON DATE(S): None DXA scans are compared to prior studies for a patient only when the two (or more) studies were performed on the same scanner. It is not possible to compare data generated on one scanner to data from another because there are not standards in DXA equipment. This applies even if the two scanners are made by the same store assistant. PROCEDURE: Dual-energy x-ray absorptiometry performed with routine technique. Reporting is completed in the form of a T-score. The T-score represents the standard deviation from peak bone mass based on young healthy adult. A Z-score is used for diagnosis in premenopausal women, and for men under the age of 50. FINDINGS: RESULT LUMBAR SPINE L1 - L4 BMD: 1.054 g/cm2 T-Score: + 0.1 Z-Score: + 2.2 RESULTS FEMUR Left femoral neck BMD: 0.665 g/cm2 T-Score: - 1.7 Z-Score: + 0.2 Left total hip BMD: 0.750 g/cm2 T-Score: - 1.6 Z-Score: 0.0 Right femoral neck BMD: 0.638 g/cm2 T-Score: - 1.9 Z-Score: - 0.1 Right total hip BMD: 0.751 g/cm2 T-Score: - 1.6 Z-Score: 0.0 WHO Criteria: Normal: T-score at or above -1 SD Osteopenia: T-score between -1.1 and -2.4 SD Osteoporosis: T-score at or below -2.5 SD LEFT: FRAX RISK CALCULATION (USED FOR OSTEOPENIA ONLY): 10-year probability of major osteoporotic fracture: 10%. 10-year probability of hip fracture: 1.6%. RIGHT: FRAX RISK CALCULATION (USED FOR OSTEOPENIA ONLY): 10-year probability of major osteoporotic fracture: 11%. 10-year probability of hip fracture: 1.9%. Jan [place] DO DEXA Final Result * (ABNORMAL) LIPID PANEL W REFLEX MEASURED LDL (12/01/2023 12:03 PM CDT) [facility] CHOLESTEROL,TOTAL 309(H) 100 - 199 mg/dL 12/02/2023 5:07 AM T [facility] Comment: Cholesterol, Total Reference Ranges Desirable <200 mg/dL Borderline 200-239 mg/dL High >=240 mg/dL TRIGLYCERIDES 214(H) <150 mg/dL 12/02/2023 5:07 AM T [facility] HDL CHOLESTEROL 60 >40 mg/dL 5:07 AM CDT [facility] NON-HDL CHOLESTEROL 249(H) <145 mg/dl 12/02/2023 5:07 AM CDT [facility] CHOL/HDL RATIO 5.15(H) <4.50 12/02/2023 5:07 AM CDT [facility] LDL CHOLESTEROL 206(H) <=130 mg/dL 12/02/2023 5:07 AM T [facility] VLDL CHOLESTEROL 43(H) <=30 mg/dL 12/02/2023 5:07 AM CDT [facility] PROVIDER ORDERED STATUS RANDOM 12/02/2023 5:07 AM T [facility] Blood BLOOD SPECIMEN / Unknown Venipuncture / Unknown 12/01/2023 12:03 PM CDT 12/01/2023 12:03 PM CDT Jan [place] DO CHEMISTRY Final Result [facility] [address] [place] [address], * HCV ANTIBODY RFX TO QUANT PCR (05/08/2022 11:41 AM [employer]) [facility] HCV Ab Non Reactive Non Reactive 05/10/2022 2:08 PM [employer] [facility] Blood BLOOD SPECIMEN / Unknown Venipuncture / Unknown 05/08/2022 11:41 AM [employer] 05/08/2022 11:41 AM [employer] Narrative [facility] - 05/10/2022 2:08 PM [employer] Performed at: [address] [place] [id number] Sports Book Writer: Shilo Hughes MD, Phone: [phone] Jan [place] DO LABORATORY Final Result [facility] ([facility]) [address] [place], [place] [id number], from Last 3 Months or Most Recently Relevant to Health Maintenance Insurance MEDICARE PART A HB ONLY [employer] PPO MR Care Teams Evidence Custodian Relationship Specialty Start Date End Date Jan [place] DO [address] [place] [address] PCP - General Family Practice 05/15/21
== END 2025-01-31 18:52 | disposition home or self-care (01) ==
PROVIDERS: Emergency Provider Family Medicine
DX: S22.31XA Fracture of one rib, right side, initial encounter for closed fracture (principal); S00.03XA Contusion of scalp, initial encounter; S29.9XXA Unspecified injury of thorax, initial encounter; S80.01XA Contusion of right knee, initial encounter; W10.8XXA Fall (on) (from) other stairs and steps, initial encounter; Y92.008 Other place in unspecified non-institutional (private) residence as the place of occurrence of the external cause
CPT/HCPCS: 70450; 71250; 72128; 99284; 99285